=== PATIENT | female | born 1990 | race Caucasian/White ===

== ENCOUNTER 2017-09-28 16:22 | Emergency (ER) | payer MEDICAID ==
[~2017-09-28] VITALS: Ht 160 cm; Wt 106.4 kg
[2017-09-28 16:45] VITALS: Ht 160 cm; Wt 106.4 kg
[2017-09-28] MEDS ORDERED: NAPROSYN500 MG PO (16:47)
[2017-09-28 17:44] LABS: BASOPHILS 0.7 % (0-2); EOSINOPHILS 4.2 % (0-7); HEMOGLOBIN 16.7 g/dL (12-16); IMMATURE GRANULOCYTES 0.3 % (0-5); LYMPHOCYTES 29.5 % (15-50); MCH 30.3 pg (26.0-34.0); MCHC 35.5 g/dL (31.0-37.0); MCV 85.3 fL (80.0-100.0); MEAN PLATELET VOLUME 9.9 fL (7.4-10.4); MONOCYTES 3.5 % (2-11); NEUTROPHILS 61.8 % (40-80); RBC 5.51 10x6/uL (4.00-5.40); RDW 13.3 % (11.5-14.5); WBC 15.2 10x3/uL (4.8-10.8)
[2017-09-28 17:47] LABS: PLATELET COUNT 437 10x3/uL (130-400)
[2017-09-28 18:15] LABS: ALBUMIN 4.1 g/dL (3.4-5.0); ALKALINE PHOSPHATASE 81 U/L (46-116); ALT (SGPT) 53 U/L (10-68); AMYLASE - SERUM 40 U/L (25-115); BILIRUBIN - TOTAL 0.28 mg/dL (0.2-1.3); CALC OSMOLALITY 279 mosm/kg (275-300); CALCIUM 9.2 mg/dL (8.5-10.1); CARBON DIOXIDE 25.1 mmol/L (21.0-32.0); CHLORIDE - SERUM 103 mmol/L (98-107); CREATININE - SERUM 0.8 mg/dL (0.6-1.3); LIPASE 177 U/L (73-393); POTASSIUM - SERUM 3.9 mmol/L (3.5-5.1); PROTEIN - SERUM 8.1 g/dL (6.4-8.2); SODIUM 140 mmol/L (136-145); UREA NITROGEN 11 mg/dL (7-18); eGFR NON AFRICAN AMERICAN > 90 mL/min (90-120)
[2017-09-28 18:18] LABS: GLUCOSE 137 mg/dL (74-106)
[2017-09-28 18:58] LABS: APPEARANCE CLEAR (CLEAR); BILIRUBIN NEGATIVE (NEGATIVE); COLOR YELLOW (YELLOW); GLUCOSE NEGATIVE (NEGATIVE); KETONE NEGATIVE (NEGATIVE); NITRITE NEGATIVE (NEGATIVE); PROTEIN NEGATIVE (NEGATIVE); SPECIFIC GRAVITY 1.015 (1.005-1.020); UROBILINOGEN NORMAL (NORMAL)
[2017-09-28 21:14] LABS: HCG SERUM NEGATIVE (NEGATIVE)
[2017-09-29] MEDS ORDERED: CORTISPORIN OTI10 M1 LEFT EAR (00:34)
[2017-09-29] MEDS ORDERED: ZITHROMAX250 MG PO (00:34)
[2017-09-29 02:43] VITALS: BP 149/82
== END 2017-09-29 01:20 | disposition home or self-care (01) ==
LOC: D.ER 16:22
PROVIDERS: Emergency Medicine; Family Medicine
DX: R10.11 Right upper quadrant pain (principal); H66.90 Otitis media, unspecified, unspecified ear; E11.9 Type 2 diabetes mellitus without complications; F17.200 Nicotine dependence, unspecified, uncomplicated